=== PATIENT | male | born 1975 | race Caucasian/White ===

== ENCOUNTER 2016-11-02 02:15 | Emergency (ER) | payer OTHER ==
[~2016-11-02] VITALS: Ht 185.4 cm; Wt 122.5 kg
[2016-11-02] MEDS ORDERED: OxyCODONE HCL/ACETAMINOPHEN 5-325 MG TABLET PO ONE (03:45)
[2016-11-02] MEDS ORDERED: DEXAMETHASONE 4 MG TABLET PO ONE (03:45)
[2016-11-02] MEDS ORDERED: DEXAMETHASONE 0.5 MG/5 ML ELIXIR ORAL.SYG PO ONE (04:00)
[2016-11-02] MEDS ORDERED: MORPHINE SULFATE 4 MG/ML SYRINGE IM ONE (04:00)
[2016-11-02] MEDS ORDERED: KETOROLAC TROMETHAMINE 30 MG/ML VIAL IM ONE (04:00)
[2016-11-02] MEDS ORDERED: DEXAMETHASONE SOD PHOS 4 MG/ML VIAL PO ONE (04:15)
[2016-11-02 06:10] VITALS: BP 138/95
== END 2016-11-02 06:28 | disposition home or self-care (01) ==
LOC: EMS 02:17
DX: J02.8 Acute pharyngitis due to other specified organisms (principal); B97.89 Other viral agents as the cause of diseases classified elsewhere; F12.90 Cannabis use, unspecified, uncomplicated
CPT/HCPCS: 87430; 96372; 99284; J1100; J1885; J2270; J8540

== ENCOUNTER 2018-04-29 10:47 | Emergency (ER) | payer OTHER ==
[~2018-04-29] VITALS: Ht 182.9 cm; Wt 122.7 kg
[2018-04-29] MEDS ORDERED: PERTUSS(ACELL),DIPH,TET VAC/PF 0.5 ML VIAL IM ONE (11:30)
[2018-04-29] MEDS ORDERED: IBUPROFEN 600 MG TABLET PO ONE (11:30)
[2018-04-29] MEDS ORDERED: LIDOCAINE 1% 10 ML VIAL INJ ONE (12:15)
[2018-04-29] MEDS ORDERED: BACITRACIN 0.9 GM PACKET OINTMENT TP ONE (12:15)
[2018-04-29 13:35] VITALS: BP 139/88
== END 2018-04-29 13:44 | disposition home or self-care (01) ==
LOC: EMS 10:48
DX: S61.213A Laceration without foreign body of left middle finger without damage to nail, initial encounter (principal); F12.90 Cannabis use, unspecified, uncomplicated; W20.8XXA Other cause of strike by thrown, projected or falling object, initial encounter; Y93.89 Activity, other specified; Y92.89 Other specified places as the place of occurrence of the external cause; Y99.0 Civilian activity done for income or pay
CPT/HCPCS: 12002; 73140; 90471; 90715; 99283; J3490

== ENCOUNTER 2023-02-10 21:15 | Emergency (ER) | payer MEDICAID, OTHER ==
[~2023-02-10] VITALS: Ht 185.4 cm; Wt 136.0 kg
[2023-02-10 21:18] VITALS: BP 120/91; PULSE 79; RESP 17; TEMP 98.2
[2023-02-10 21:39] LABS: COVID AG,FIA SOURCE NASAL SWAB
[2023-02-10 21:48] LABS: RAPID GROUP A STREP NEGATIVE (NEGATIVE)
[2023-02-10 21:58] LABS: INFLUENZA TYPE A NEGATIVE FOR TYPE A (NEGATIVE); INFLUENZA TYPE B NEGATIVE FOR TYPE B (NEGATIVE); SARS-COV2 (COVID) ANTIGEN,FIA Negative (Negative)
[2023-02-10] MEDS: DEXAMETHASONE 4 MG TABLET PO ONE (22:11)
== END 2023-02-10 22:13 | disposition home or self-care (01) ==
LOC: EMS 21:16
DX: J02.9 Acute pharyngitis, unspecified (principal); F12.90 Cannabis use, unspecified, uncomplicated; Z20.822 Contact with and (suspected) exposure to COVID-19
CPT/HCPCS: 99283; 87426; 87430; 87804; J8540